=== PATIENT | female | born 1970 | race Caucasian/White ===

== ENCOUNTER 2016-12-28 04:00 | Emergency (ER) | payer OTHER ==
--- NOTE | ~2016-12-28 | CT4 ---
[facility] A Service of [facility] & [facility] RADIOLOGY TEXT RESULTS PATIENT: ARIEL HDEZ LOCATION: SED : 66 UNIT #: [id number] AGE: [address]: Heath Ayon MD SEX: F ORDER DR: [id number] [place] [id number] E MR#: [id number] Acc #: [id number] NAME: ARIEL HDEZ. : 1970 SEX: F STUDY DATE/TIME: 12/28/2016 05:17 UNIT: SED ROOM: STUDY DESCRIPTION: CT Abd and Pelv Wo Cont Attending Physician: Heath Ayon M.D. Ordering Physician: Heath Ayon M.D. Primary Care Physician: [facility] MEDICAL IMAGING REPORT This report is preliminary unless electronic signature is present. EXAM CT abdomen and pelvis 12/28 at 05:17 INDICATIONS Generalized abdominal pain radiating to the groin for the last 4 days. Pain currently rates 10:10. TECHNIQUE Axial noncontrast images were obtained through the abdomen and pelvis. Multiplanar reformats were obtained. No comparison abdomen or pelvis CT scan. This CT exam was performed with one or more of the following radiation dose reduction techniques: automatic exposure control, adjustment of mA and/or kV according to patient size, and iterative reconstruction. FINDINGS Abdomen: There is some mild elevation of the left hemidiaphragm. There is atelectasis or scarring in both lower lobes. There is a stable nonspecific low-density lesion in the dome of the liver as compared with chest CTA from 10/26/2011. This is benign. This could reflect hemangioma. Measures about 1.3 cm. Tiny nonobstructing stones are present in the right kidney. No ureteral stones are seen on either side. There is no hydronephrosis. The unenhanced solid organs are otherwise normal. Moderate stool volume in the colon would suggest constipation. The small bowel is unremarkable. No free fluid. Pelvis: The appendix is normal. Moderate stool in the colon is again seen. The distal small bowel is normal. Urinary bladder is normal. There are no lower ureteral stones. There is no free fluid. Uterus is surgically absent. IMPRESSION [facility]. [facility] A Service of [facility] & [facility] RADIOLOGY TEXT RESULTS PATIENT: ARIEL HDEZ LOCATION: [facility] [place] [birth year] UNIT #: [id number] AGE: [address]: Heath Ayon MD SEX: F ORDER DR: 1. Moderate stool volume in the colon suggests constipation. The GI tract including the appendix is otherwise normal. 2. Tiny nonobstructing stones in the right kidney. No ureteral stones on either side and no hydronephrosis is seen. 3. Hysterectomy and cholecystectomy. 4. Stable and therefore benign hypodense lesion in the dome of the liver. This is unchanged since 2011. 1. Dictated by... Venkat Fuller Jr., M.D. THIS IS AN ELECTRONICALLY VERIFIED REPORT Venkat Fuller Jr., M.D. at 12/28/2016 10:40 PM JULI/osmani TD: 12/28/2016 07:18 JOB #: 1 MEDICAL IMAGING REPORT Page 1 of 1
[~2016-12-28 04:00] MED LIST: ALBUTEROL 0.5ML INH; ALBUTEROL17 G1; ALBUTEROL17 G1 IH; ALBUTEROL17 GM INH; ATARAX PO; BENTYL20 MG PO; DICYCLOMINE HCL20 MG PO; DULERA 100 MCG/13 GM INH; HYDROXYZINE HCL25 M1 PO; KLONOPIN; LISINOPRIL; LORTAB 5/500 TA1 TA1 PO; MEDROL4 MG/DOSE- PO; NEURONTIN300 MG PO; PHENERGAN PO; PHENERGAN PR; PRAVASTATIN SOD20 MG PO; PRINIVIL20 M1 PO; PROPRANOLOL PO; SEROQUEL50 M1 PO; SINGULAIR PO; VOLTAREN50 MG PO; VOLTAREN75 MG PO; ZANTAC; ZANTAC150 M1 PO; ZYRTEC10 M2 PO
[2016-12-28 04:16] LABS: URINE SOURCE CLEAN CATCH
[2016-12-28 04:18] LABS: URINE APPEARANCE CLEAR; URINE BILIRUBIN NEG (NEG); URINE BLOOD NEG (NEG); URINE COLOR ORANGE; URINE KETONE NEG (NEG); URINE LEUKOCYTE ESTERASE TRACE (NEG); URINE NITRATE POS (NEG); URINE PROTEIN TRACE (NEG); URINE SPECIFIC GRAVITY <=1.005 (1.003-1.035)
[2016-12-28 04:21] LABS: BASOPHIL% 0.5 % (0-2.5); DIFF IND NO; EOSINOPHIL# 0.1 X10e3 (0-0.7); EOSINOPHIL% 2.6 % (0.0-7.0); HEMATOCRIT 38.1 % (35.0-45.0); HEMOGLOBIN 12.9 gm/dL (12.0-16.0); LYMPHOCYTE# 2.1 X10e3 (1.0-3.5); LYMPHOCYTE% 37.6 % (17.0-45.0); MEAN CELL VOLUME 89.3 FL (83-96); MEAN CORPUSCULAR HEMOGLOBIN 30.4 PG (28-34); MEAN PLATELET VOLUME 7.3 FL (6.5-11.5); MONOCYTE# 0.5 X10e3 (0-1.0); MONOCYTE% 8.4 % (3.0-12.0); NEUTROPHIL# 2.8 X10e3 (1.5-7.1); NEUTROPHIL% 50.9 % (40-75); PLATELET COUNT 226 X10e3 (140-420); RED BLOOD COUNT 4.26 X10e (3.90-5.30); RED CELL DISTRIBUTION WIDTH 12.8 % (11.0-15.5); WHITE BLOOD COUNT 5.5 X10e3 (4.0-10.5)
[2016-12-28 04:25] LABS: MICRO INDICATED? YES; URINE GLUCOSE NORM (NORM)
[2016-12-28 04:27] LABS: CULTURE INDICATED? YES; URINE BACTERIA 2+ (NEG); URINE MUCUS PRESENT; URINE RBC 0-2 /[HPF] (0-2); URINE SQUAMOUS EPITHELIAL CELL MODERATE /[HPF]
[2016-12-28 04:35] LABS: ALBUMIN SERUM 4.1 g/dL (3.5-5.0); BILIRUBIN, DIRECT 0.2 mg/dL (0.0-0.2); BILIRUBIN,INDIRECT 0.7 mg/dL (0.0-0.9); BILIRUBIN,TOTAL 0.9 mg/dL (0.2-2.0); BUN/CREATININE RATIO 17.5; CALCIUM SERUM 9.1 mg/dL (8.4-10.2); CREATININE SERUM 0.8 mg/dL (0.6-1.4); GLOM FILT RATE Estimated 87.3 mL/min (>60); POTASSIUM 3.7 mmol/L (3.5-5.1); PROTEIN TOTAL SERUM 6.7 g/dL (6.0-8.3)
[2016-12-28] MEDS ORDERED: OMNICEF300 MG PO (05:49)
== END 2016-12-28 06:02 | disposition home or self-care (01) ==
LOC: SED 04:00
PROVIDERS: Emergency Medicine
DX: N39.0 Urinary tract infection, site not specified (principal); F17.200 Nicotine dependence, unspecified, uncomplicated; Z90.710 Acquired absence of both cervix and uterus; Z90.49 Acquired absence of other specified parts of digestive tract; Z88.2 Allergy status to sulfonamides; Z79.899 Other long term (current) drug therapy
CPT/HCPCS: 36415; 74176; 80048; 80076; 81003; 82150; 83690; 85025; 87086; 99284

== ENCOUNTER 2017-02-04 01:19 | Emergency (ER) | payer OTHER ==
--- NOTE | ~2017-02-04 | CR2 ---
[facility]. [facility] A Service of [facility] & [facility] RADIOLOGY TEXT RESULTS PATIENT: ARIEL HDEZ LOCATION: SED : [birth year] UNIT #: [id number] AGE: [address]: Paula Cheatham MD SEX: F ORDER DR: [id number] [place] [id number] MR#: [id number] Acc #: [id number] NAME: ARIEL HDEZ. : 1970 SEX: F STUDY DATE/TIME: 02/04/2017 04:23 UNIT: SED ROOM: STUDY DESCRIPTION: CR Abdomen Acute Series Attending Physician: Paula Cheatham M.D. Ordering Physician: Paula Cheatham M.D. Primary Care Physician: [facility] MEDICAL IMAGING REPORT This report is preliminary unless electronic signature is present. EXAM Acute abdomen series 02/04/2017 04:23 INDICATION Abdominal pain and vomiting that started this morning. FINDINGS Upright view of the chest was obtained in addition to flat and upright views of the abdomen. Comparison made with chest x-ray from 08/13/2012. Cardiac and mediastinal contours are normal. The lungs are clear. Gallbladder surgically absent. No bowel obstruction or free air is seen. There is some small bowel gas noted in nondistended loops likely reflecting a mild ileus. Multiple calcifications in the pelvis are felt to represent phleboliths. IMPRESSION No active disease in the chest. No bowel obstruction or free air is seen. Gas filled nondistended small bowel loops would suggest a mild ileus. Dictated by... Venkat Fuller Jr., M.D. THIS IS AN ELECTRONICALLY VERIFIED REPORT Venkat Fuller Jr., M.D. at 02/07/2017 8:36 AM JULI/christiano TD: 02/04/2017 06:33 JOB #: [id number] MEDICAL IMAGING REPORT Page 1 of 1
[~2017-02-04 01:19] MED LIST changes: +OMNICEF300 MG PO
[2017-02-04 03:32] LABS: BASOPHIL% 0.4 % (0-2.5); DIFF IND NO; EOSINOPHIL% 0.5 % (0.0-7.0); HEMATOCRIT 39.6 % (35.0-45.0); HEMOGLOBIN 13.8 gm/dL (12.0-16.0); LYMPHOCYTE# 1.5 X10e3 (1.0-3.5); LYMPHOCYTE% 15.7 % (17.0-45.0); MEAN CELL VOLUME 88.4 FL (83-96); MEAN CORPUSCULAR HEMOGLOBIN 30.8 PG (28-34); MEAN CORPUSCULAR HGB CONC 34.9 g/dL (30-36); MEAN PLATELET VOLUME 7.7 FL (6.5-11.5); MONOCYTE# 0.6 X10e3 (0-1.0); MONOCYTE% 5.8 % (3.0-12.0); NEUTROPHIL# 7.4 X10e3 (1.5-7.1); NEUTROPHIL% 77.6 % (40-75); PLATELET COUNT 235 X10e3 (140-420); RED BLOOD COUNT 4.48 X10e (3.90-5.30); RED CELL DISTRIBUTION WIDTH 13.6 % (11.0-15.5); WHITE BLOOD COUNT 9.5 X10e3 (4.0-10.5)
[2017-02-04 03:48] LABS: ALBUMIN SERUM 4.7 g/dL (3.5-5.0); BILIRUBIN, DIRECT 0.1 mg/dL (0.0-0.2); BILIRUBIN,INDIRECT 0.4 mg/dL (0.0-0.9); BILIRUBIN,TOTAL 0.5 mg/dL (0.2-2.0); BUN/CREATININE RATIO 15.71; CREATININE SERUM 0.7 mg/dL (0.6-1.4); GLOM FILT RATE Estimated 102.5 mL/min (>60); POTASSIUM 3.1 mmol/L (3.5-5.1); PROTEIN TOTAL SERUM 7.7 g/dL (6.0-8.3)
[2017-02-04 03:58] LABS: URINE APPEARANCE CLEAR; URINE BILIRUBIN NEG (NEG); URINE BLOOD NEG (NEG); URINE COLOR YELLOW; URINE GLUCOSE NEG (NORM); URINE KETONE NEG (NEG); URINE LEUKOCYTE ESTERASE NEG (NEG); URINE NITRATE NEG (NEG); URINE PH 7.5 (5-8); URINE PROTEIN NEG (NEG); URINE UROBILINOGEN 0.2 MG/DL (NORM)
[2017-02-04 04:01] LABS: MICRO INDICATED? NO; URINE SOURCE CLEAN CATCH
[2017-02-04 04:07] LABS: AMPHETAMINE NEG (NEG); BARBITURATES NEG (NEG); BENZODIAZEPINES NEG (NEG); COCAINE NEG (NEG); MARIJUANA NEG (NEG); OPIATES NEG (NEG); TRICYCLIC ANTIDEPRESSANTS NEG (NEG); U METHADONE NEG (NEG)
== END 2017-02-04 05:03 | disposition home or self-care (01) ==
LOC: SED 01:19
PROVIDERS: Student in an Organized Health Care Education/Training Program
DX: R10.84 Generalized abdominal pain (principal); I10 Essential (primary) hypertension; Z90.710 Acquired absence of both cervix and uterus; Z90.49 Acquired absence of other specified parts of digestive tract; Z88.2 Allergy status to sulfonamides
CPT/HCPCS: 36415; 74022; 80048; 80076; 80307; 81003; 82150; 83690; 85025; 96361; 96374; 96375; 99284; C9113; J2405